=== PATIENT | male | born 1990 | race Caucasian/White ===

== ENCOUNTER 2019-10-09 20:44 | Emergency (ER) | payer BC ==
[2019-10-09] MEDS ORDERED: ONDANSETRON HCL INJ/PF 4 MG/2 ML SDV IV ONE (21:25)
[2019-10-09] MEDS: NORMAL SALINE 1000 ML 1,000 ML IV PRN ×2 (21:49→22:46)
[2019-10-09 22:13] LABS: ABSOLUTE BASOPHILS # (AUTO) 0.1 10^3/uL (0.0-0.2); ABSOLUTE LYMPHOCYTES (AUTO) 1.6 10^3/uL (0.5-4.7); ABSOLUTE NEUT (AUTO) 13.4 10^3/uL (1.7-8.2); BASOPHILS % (AUTO) 0.4 % (0-2); EOSINOPHILS % (AUTO) 0.1 % (0-6); HEMATOCRIT 46.6 % (37.9-51.0); HEMOGLOBIN 15.8 g/dL (13.5-17.0); LYMPHOCYTES % (AUTO) 9.9 % (13-45); MEAN CORPUSCULAR HEMOGLOBIN 30.2 pg (27.0-33.4); MEAN CORPUSCULAR HGB CONC 33.8 g/dL (32.0-36.0); MEAN CORPUSCULAR VOLUME 89 fl (80-97); MONOCYTES % (AUTO) 6.4 % (3-13); PLATELET COUNT 209 10^3/uL (150-450); RED BLOOD COUNT 5.22 10^6/uL (4.35-5.55); SEGMENTED NEUTROPHILS % (AUTO) 83.2 % (42-78); TOTAL CELLS COUNTED % (AUTO) 100 %; WHITE BLOOD COUNT 16.1 10^3/uL (4.0-10.5)
[2019-10-09 22:14] LABS: VENOUS BLOOD BASE EXCESS 1.6 mmol/L; VENOUS BLOOD HCO3 25.9 mmol/L (20-32); VENOUS BLOOD PCO2 39.8 mmHg (35-63); VENOUS BLOOD PH 7.43 (7.30-7.42)
[2019-10-09 22:27] LABS: ALBUMIN 5.5 g/dL (3.5-5.0); ALKALINE PHOSPHATASE 70 U/L (38-126); ANION GAP 16 (5-19); ASPARTATE AMINO TRANSFERASE 32 U/L (17-59); BILIRUBIN,DIRECT 0.1 mg/dL (0.0-0.4); BILIRUBIN,TOTAL 1.1 mg/dL (0.2-1.3); BLOOD UREA NITROGEN 19 mg/dL (7-20); CALCIUM 11.1 mg/dL (8.4-10.2); CARBON DIOXIDE 26 mmol/L (22-30); CHLORIDE 100 mmol/L (98-107); CREATINE KINASE 235 U/L (55-170); GLUCOSE 122 mg/dL (75-110); TOTAL PROTEIN 9.3 g/dL (6.3-8.2)
--- NOTE | 2019-10-09 22:58 | ER Document Report ---
ED Heat Exposure - General Chief Complaint: Heat Exposure Stated Complaint: OTHER Time Seen by Provider: 10/09/19 21:08 Notes: Patient is a 29-year-old male who was working outside today in the heat. Patient has done this for years. Had an appointment with his doctor at 2:00 (just a routine follow-up) so he got out of the heat at that time. He states that he had another 5 yards to finish and so pressed on after he was done he began to feel nauseated and have cramping throughout his body. He was confused at home, so brought in for evaluation. Vomiting when first arrived. Patient received Zofran and IV fluids already and is feeling much better at this time. Denies chest pain, trouble breathing, headache, abdominal pain. He does not use any supplements or illicit drugs. He does not take any medications for anything. States that he has felt like this in the past due to heat but not to this extent. TRAVEL OUTSIDE OF THE [place] IN LAST 30 DAYS: No - HPI Onset/Duration: Gradual Quality of pain: Cramping Severity: Moderate Pain Level: Denies - now Associated symptoms: Rapid pulse, Nausea, Vomiting, Muscle cramping - Related Data Allergies/Adverse Reactions: No Known Allergies Allergy (Unverified 10/09/19 21:09) Past Medical History - Social History Smoking Status: Never Smoker Frequency of alcohol use: None Drug Abuse: None Family History: Reviewed & Not Pertinent - Medical History Medical History: Negative Surgical Hx: Negative Review of Systems - Review of Systems Constitutional: Weakness EENT: No symptoms reported Cardiovascular: No symptoms reported Respiratory: No symptoms reported Gastrointestinal: See HPI Genitourinary: No symptoms reported Male Genitourinary: No symptoms reported Musculoskeletal: See HPI Skin: No symptoms reported Hematologic/Lymphatic: No symptoms reported Neurological/Psychological: No symptoms reported Physical Exam - Vital signs Vitals: Resp BP Pulse Ox 15 137/82 H 100 10/09/19 21:00 10/09/19 21:00 10/09/19 21:00 Interpretation: Normal - General General appearance: Appears well, Alert - HEENT Head: Normocephalic, Atraumatic Eyes: Normal Pupils: PERRL Mucous membranes: Dry - Respiratory Respiratory status: No respiratory distress Chest status: Nontender Breath sounds: Normal Chest palpation: Normal - Cardiovascular Rhythm: Regular Heart sounds: Normal auscultation Murmur: No - Abdominal Inspection: Normal Distension: No distension Bowel sounds: Normal Tenderness: Nontender Organomegaly: No organomegaly - Back Back: Normal, Nontender - Extremities General upper extremity: Normal inspection, Nontender, Normal color, Normal ROM, Normal temperature General lower extremity: Normal inspection, Nontender, Normal color, Normal ROM, Normal temperature, Normal weight bearing. No: Jovanny's sign - Neurological Neuro grossly intact: Yes Cognition: Normal Orientation: AAOx4 [place] Coma Scale Eye Opening: Spontaneous Vio[place] Coma Scale Verbal: Oriented [place] Coma Scale Motor: Obeys Commands [place] Coma Scale Total: 15 Speech: Normal Motor strength normal: LUE, RUE, LLE, RLE Sensory: Normal - Psychological Associated symptoms: Normal affect, Normal mood - Skin Skin Temperature: Warm Skin Moisture: Dry Skin Color: Normal Course - Re-evaluation Re-evalutation: 10/09/19 22:57 Patient has received Zofran and a liter of fluids. He is feeling better at this time and taking p.o. No evidence for rhabdomyolysis. Creatinine elevated at 1.52. Symptoms are consistent with heat exhaustion. Otherwise appears well. He will be discharged home after his second bag of fluids. Urine still pending. 10/10/19 00:24 20 ketones in urine. Patient is feeling much better at this time and back to normal. He is advised to stay out of the heat and make sure he is staying hydrated with non-caffeinated beverages. No further concerns or symptoms. He will be discharged home is to follow-up with his doctor. Understands and agrees with plan. Will not work tomorrow. Stable for discharge. - Vital Signs Vital signs: Temp Pulse Resp BP Pulse Ox 98.2 F 15 122/86 H 100 10/09/19 21:04 10/09/19 22:01 10/09/19 22:01 10/09/19 22:01 - Laboratory Result Diagrams: 10/09/19 21:55 10/09/19 21:55 Laboratory results interpreted by me: 10/09/19 10/09/19 10/09/19 21:55 21:55 21:55 WBC 16.1 H Lymph % (Auto) 9.9 L Absolute Neuts (auto) 13.4 H Seg Neutrophils % 83.2 H VBG pH 7.43 H Creatinine 1.52 H Est GFR (MDRD) Non-Af 54 L Glucose 122 H Calcium 11.1 H Creatine Kinase 235 H Total Protein 9.3 H Albumin 5.5 H Urine Protein Urine Ketones Urine Urobilinogen 10/09/19 23:30 WBC Lymph % (Auto) Absolute Neuts (auto) Seg Neutrophils % VBG pH Creatinine Est GFR (MDRD) Non-Af Glucose Calcium Creatine Kinase Total Protein Albumin Urine Protein 100 H Urine Ketones 20 H Urine Urobilinogen 4.0 H Discharge - Discharge Clinical Impression: Dehydration Heat exhaustion Qualifiers: Encounter type: initial encounter Qualified Code(s): T67.5XXA - Heat exhaustion, unspecified, initial encounter Condition: Stable Disposition: HOME, SELF-CARE Instructions: Heat Exhaustion ([facility]), Dehydration ([facility]) Prescriptions: Ondansetron [Zofran Odt 4 mg Tablet] 1 tab PO Q6HP PRN #15 tab.rapdis PRN Reason: For Nausea/Vomiting Forms: Return to Work
[2019-10-10 00:02] LABS: APPEARANCE,URINE SLIGHTLY-CLOUDY; BILIRUBIN,URINE NEGATIVE (NEGATIVE); COLOR,URINE AMBER; GLUCOSE, URINE NEGATIVE (NEGATIVE); KETONES,URINE 20 mg/dL (NEGATIVE); PROTEIN,URINE 100 mg/dL (NEGATIVE); URINE SPECIFIC GRAVITY 1.028
[2019-10-10 00:45] VITALS: BP 120/71
--- NOTE | 2019-10-10 08:36 | EKG REPORT ---
SEVERITY:- ABNORMAL ECG - SINUS RHYTHM INCOMPLETE RIGHT BUNDLE BRANCH BLOCK PROBABLE LEFT VENTRICULAR HYPERTROPHY : Confirmed by: Tammie Tejada 10-Oct-2019 08:36:05
== END 2019-10-10 00:44 | disposition home or self-care (01) ==
LOC: ER 20:44
DX: T67.5XXA Heat exhaustion, unspecified, initial encounter (principal); E86.0 Dehydration; X30.XXXA Exposure to excessive natural heat, initial encounter; Y93.H9 Activity, other involving exterior property and land maintenance, building and construction; Y99.0 Civilian activity done for income or pay; R11.2 Nausea with vomiting, unspecified; R41.0 Disorientation, unspecified; R25.2 Cramp and spasm
CPT/HCPCS: 93005; 99284; 96361; 96374; 36415; 87040; 82550; 83605; 85025; 80053; 81001; 84484; 82803; 93010; J2405; J7030